=== PATIENT | male | born 1955 | race Caucasian/White ===

== ENCOUNTER 2017-08-28 13:52 | Emergency (ER) | payer BC ==
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
[2017-08-28 14:13] VITALS: BP 147/59
--- NOTE | 2017-08-28 21:51 | ED ---
Progress - Progress Note Progress Note: no change Course/Dx - Diagnoses Provider Diagnoses: Abscess
== END 2017-08-28 14:37 | disposition home or self-care (01) ==
LOC: UCCORT 13:52
DX: S61.204A Unspecified open wound of right ring finger without damage to nail, initial encounter (principal); B95.61 Methicillin susceptible Staphylococcus aureus infection as the cause of diseases classified elsewhere; X08.8XXA Exposure to other specified smoke, fire and flames, initial encounter; Y93.9 Activity, unspecified; Y92.9 Unspecified place or not applicable; Y99.9 Unspecified external cause status
CPT/HCPCS: 87070; 87077; 87186; 87205; 87640; 87641; 99212; G0463

== ENCOUNTER 2017-12-31 06:45 | Day surgery (SDC) | payer BC ==
[~2017-12-31 06:45] MED LIST: Acetaminophen TAB* 325 MG PO PRN; Buffered Lidocaine 0.9% SYRIN* 5 ML/SYR SYRINGE INTRADERM ONE
[2017-12-31] MEDS ORDERED: Midazolam* 1 MG/ML 2 ML VIAL (2 MG) ONE (07:56)
[2017-12-31 08:58] VITALS: BP 130/68
[2017-12-31] MEDS ORDERED: Tropicamide 1% OPTH.SOL* BTL ONE (10:38)
[2017-12-31] MEDS ORDERED: Povidone Iodine 5% OPTH* 30 ML BTL ONE (10:38)
[2017-12-31] MEDS ORDERED: Ketorolac 0.5% OPHTH (NF) 0.5 % 5 ML BTL ONE (10:38)
[2017-12-31] MEDS ORDERED: acetaZOLAMIDE TAB* 250 MG ONE (10:38)
[2017-12-31] MEDS ORDERED: Lidocaine 1% MPF* 2 ML VIAL ONE (10:38)
[2017-12-31] MEDS ORDERED: Neomycin/Polymy/Dex OPHTH.OIN* 3.5 GM ONE (10:38)
[2017-12-31] MEDS ORDERED: Tetracaine 0.5% OPTH.SOL 4 ML* 1 DROP BTL ONE (10:38)
[2017-12-31] MEDS ORDERED: Phenylephrine 2.5% OPTH.SOL* 2 ML BTL ONE (10:38)
[2017-12-31] MEDS ORDERED: Cyclopentolate 1% OPTH.SOL* 2 ML BTL ONE (10:38)
--- NOTE | 2017-12-31 23:35 | OP ---
DATE OF SURGERY: 12/31/17 - [facility] DATE OF : 51 SURGEON: Edi Colon MD ANESTHESIA: Monitored anesthesia care. PREOPERATIVE DIAGNOSIS: Cataract, left eye. POSTOPERATIVE DIAGNOSIS: Cataract, left eye with zonular weakness. PROCEDURE PERFORMED: Extracapsular cataract extraction in the left eye with intraocular lens implant. IMPLANTS: SN60WF 20.5 Diopter lens to the left eye. COMPLICATIONS: None. DESCRIPTION OF PROCEDURE: The patient was given phenylephrine 2.5% and cyclopentolate 1% eyedrops to the operative eye in the preoperative area. The patient was brought to the operating room where a time-out was taken to identify the correct patient, site and side of surgery. The patient's left eye was prepped and draped in the usual sterile fashion with 5% Betadine. A second time-out was taken to verify the correct patient, site and side of surgery and correct lens selection. A lid speculum was placed to the left eye. A 1-mm paracentesis blade was used to make a clear corneal incision in the inferotemporal position. Preservative-free 1% lidocaine was injected in the anterior chamber. DisCoVisc was then injected in the anterior chamber. A 2.75- mm keratome blade was used to make a triplanar incision at the superotemporal position. A cystotome initiated a capsulorrhexis which was completed with Utrata forceps in a continuous and curvilinear manner. During the rhexis procedure, the lens was noted to have excessive movement and a suspicion of zonular weakness was made. Hydrodissection of the lens was performed with BSS on a cannula. The lens could be spun in the capsular bag. The phacoemulsification handpiece was used with a [id number] technique to remove the nucleus in its entirety with 33.90 CDE. The I/A handpiece then removed the residual cortical lens material. DisCoVisc was injected to inflate the capsular bag. As the lens and bag complex remained centered during the phacoemulsification procedure and was intact, the decision was made to move forward with the planned SN60WF 20.5 diopter lens. DisCoVisc was injected to inflate the capsular bag and the SN60WF 20.5 diopter lens was injected into the capsular bag. The residual DisCoVisc was removed from the eye with the I/A handpiece. The corneal incisions were hydrated and no leaks occurred at physiologic pressure around 20 mmHg per palpation. The lid speculum was removed and drapes removed. Maxitrol ointment was placed to the surface of the operative eye. An adhesive patch and shield was then placed on the operative eye. The patient was taken to the postoperative area in stable condition. [id number]/CPS #: [id number] MTDD
== END 2017-12-31 08:57 | disposition home or self-care (01) ==
LOC: OREAST 06:45
PROVIDERS: ATTEND Student in an Organized Health Care Education/Training Program
DX: H25.12 Age-related nuclear cataract, left eye (principal); E11.3293 Type 2 diabetes mellitus with mild nonproliferative diabetic retinopathy without macular edema, bilateral; F17.210 Nicotine dependence, cigarettes, uncomplicated; I10 Essential (primary) hypertension; E78.5 Hyperlipidemia, unspecified; E03.9 Hypothyroidism, unspecified; E55.9 Vitamin D deficiency, unspecified; Z79.84 Long term (current) use of oral hypoglycemic drugs; E11.21 Type 2 diabetes mellitus with diabetic nephropathy
CPT/HCPCS: A9270-GY; J2250; V2632

== ENCOUNTER 2019-06-25 18:16 | Emergency (ER) | payer BC ==
[2019-06-25 20:20] VITALS: BP 134/72
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
== END 2019-06-25 20:17 | disposition short-term general hospital (02) ==
LOC: UCCORT 18:16
DX: R06.6 Hiccough (principal); I10 Essential (primary) hypertension; Z88.0 Allergy status to penicillin; E11.9 Type 2 diabetes mellitus without complications; F17.290 Nicotine dependence, other tobacco product, uncomplicated
CPT/HCPCS: 93005; 99213; G0463

== ENCOUNTER 2020-01-25 13:54 | Emergency (ER) | payer BC ==
[2020-01-25 14:04] VITALS: BP 150/65
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
== END 2020-01-25 14:56 | disposition home or self-care (01) ==
LOC: UCCORT 13:54
DX: H66.92 Otitis media, unspecified, left ear (principal); I10 Essential (primary) hypertension; E11.9 Type 2 diabetes mellitus without complications; Z79.84 Long term (current) use of oral hypoglycemic drugs; E03.9 Hypothyroidism, unspecified; E78.5 Hyperlipidemia, unspecified; Z79.82 Long term (current) use of aspirin; Z79.890 Hormone replacement therapy; Z79.899 Other long term (current) drug therapy; Z88.0 Allergy status to penicillin; F17.290 Nicotine dependence, other tobacco product, uncomplicated
CPT/HCPCS: 99212; G0463